=== PATIENT | female | born 1985 | race American Indian/Alaskan Native ===

== ENCOUNTER 2017-01-05 11:29 | Emergency (ER) | payer SELFPAY ==
[2017-01-05] MEDS ORDERED: MOTRIN PO ONE (15:27)
--- NOTE | 2017-01-05 16:49 | Emergency Department Report ---
ED Back Pain/Injury HPI - General Chief Complaint: Back Pain/Injury Stated Complaint: BACK/NECK PAIN/POSS EXPOSURE TO MOLD Time Seen by Provider: 01/05/17 15:06 Source: patient Mode of arrival: Ambulatory Limitations: No Limitations - History of Present Illness Initial Comments: PT c/o back pain secondary to 4x2 wooden beam falling from her ceiling and striking her back last night. PT states she was at home and laying in bed when her ceiling fell in. PT states she called 911 and police came out. PT states she was told there was mold in the insulation. pt c/o neck and back pain. MD Complaint: back pain -: Sudden, days(s) Similar Symptoms Previously: No Place: home Severity: severe Severity scale (0 -10): 8 Quality: sharp, aching Consistency: constant Improves With: none Worsens With: movement, walking, other (palpation ) Associated Symptoms: denies: difficulty walking, difficulty urinating, fever/ chills, nausea/vomiting - Related Data Previous Rx's Medication Instructions Recorded Last Taken Type Acetaminophen/Codeine [Tylenol #3] 1 tab PO Q6H PRN #12 tab 01/05/17 Unknown Rx Ibuprofen [Motrin] 600 mg PO Q8H PRN #15 tablet 01/05/17 Unknown Rx methOCARBAMOL [Robaxin TAB] 500 mg PO Q6H PRN #15 tablet 01/05/17 Unknown Rx Allergies Allergy/AdvReac Type Severity Reaction Status Date / Time No Known Allergies Allergy Unverified 01/05/17 12:43 ED Review of Systems ROS: Stated complaint: BACK/NECK PAIN/POSS EXPOSURE TO MOLD Other details as noted in HPI Comment: All other systems reviewed and negative Constitutional: denies: chills, fever Gastrointestinal: denies: nausea, vomiting Genitourinary: denies: dysuria, abnormal menses Musculoskeletal: back pain ED Past Medical Hx - Past Medical History Previous Medical History?: No - Surgical History Past Surgical History?: No - Social History Smoking Status: Never Smoker - Medications Home Medications: Home Medications Medication Instructions Recorded Confirmed Last Taken Type Acetaminophen/Codeine [Tylenol #3] 1 tab PO Q6H PRN #12 tab 01/05/17 Unknown Rx Ibuprofen [Motrin] 600 mg PO Q8H PRN #15 tablet 01/05/17 Unknown Rx methOCARBAMOL [Robaxin TAB] 500 mg PO Q6H PRN #15 tablet 01/05/17 Unknown Rx ED Physical Exam - General Limitations: No Limitations General appearance: alert, in no apparent distress - Head Head exam: Present: atraumatic, normocephalic, normal inspection - Eye Eye exam: Present: normal appearance, PERRL, EOMI. Absent: conjunctival injection Pupils: Present: normal accommodation - ENT ENT exam: Present: normal exam, mucous membranes moist, normal external ear exam - Neck Neck exam: Present: normal inspection, tenderness, full ROM, other (+ post midline tenderness, + dickson paraspinal tenderness ) - Respiratory Respiratory exam: Present: normal lung sounds bilaterally. Absent: respiratory distress, wheezes, chest wall tenderness, accessory muscle use - Cardiovascular Cardiovascular Exam: Present: regular rate, normal rhythm, normal heart sounds - GI/Abdominal GI/Abdominal exam: Present: soft. Absent: tenderness - Extremities Exam Extremities exam: Present: normal inspection, full ROM, normal capillary refill - Back Exam Back exam: Present: normal inspection, full ROM, tenderness, muscle spasm, paraspinal tenderness, vertebral tenderness. Absent: CVA tenderness (R), CVA tenderness (L) - Neurological Exam Neurological exam: Present: alert, oriented X3, CN II-XII intact, normal gait - Psychiatric Psychiatric exam: Present: normal affect, normal mood - Skin Skin exam: Present: warm, dry, intact, normal color, other (with tattoos ) ED Course Vital Signs 01/05/17 01/05/17 01/05/17 12:43 16:00 17:00 Temperature 98.1 F Pulse Rate 80 Respiratory 16 16 16 Rate Blood Pressure 117/61 Blood Pressure [Right] O2 Sat by Pulse 100 Oximetry 01/05/17 17:35 Temperature Pulse Rate 82 Respiratory 16 Rate Blood Pressure Blood Pressure 117/69 [Right] O2 Sat by Pulse 98 Oximetry - Reevaluation(s) Reevaluation #1: 01/05/17 17:04 PT aware of XR results. PT has no questions at this time. - Pulse Oximetry Interpretation Digit-Finger Initial Pulse Oximetry Readin Actions Taken: none ED Medical Decision Making - Lab Data Lab Results 01/05/17 Range/Units 16:13 Urine Color Yellow (Yellow) Urine Turbidity Clear (Clear) Urine pH 6.0 (5.0-7.0) Ur Specific [place] 1.019 (1.003-1.030) Urine Protein <15 mg/dl (Negative) mg/dL Urine Glucose (UA) Neg (Negative) mg/dL Urine Ketones Neg (Negative) mg/dL Urine Blood Neg (Negative) Urine Nitrite Neg (Negative) Urine Bilirubin Neg (Negative) Urine Urobilinogen < 2.0 (<2.0) mg/dL Ur Leukocyte Esterase Neg (Negative) Urine WBC (Auto) < 1.0 (0.0-6.0) /HPF Urine RBC (Auto) 2.0 (0.0-6.0) /HPF U Epithel Cells (Auto) 2.0 (0-13.0) /HPF Urine Mucus Few /HPF Urine HCG, Qual Negative (Negative) - Radiology Data Radiology results: report reviewed XR C-spine- straightening or cervical lordosis - no fx XR T- spine - scoliosis, no fx XR L spine - no fx - Differential Diagnosis mold exposure, fx, uti, Critical Care Time: No Critical care attestation.: If time is entered above; I have spent that time in minutes in the direct care of this critically ill patient, excluding procedure time. ED Disposition Clinical Impression: Contact with or exposure to mold, Acute low back pain due to trauma Cervical muscle strain Qualifiers: Encounter type: initial encounter Qualified Code(s): S16.1XXA - Strain of muscle, fascia and tendon at neck level, initial encounter Thoracic back pain Qualifiers: Chronicity: acute Back pain laterality: midline Qualified Code(s): M54.6 - Pain in thoracic spine Disposition: DC-01 TO HOME OR SELFCARE Is pt being admited?: No Does the pt Need Aspirin: No Condition: Stable Instructions: Muscle Strain (ED), Allergic Rhinitis (ED), Acute Low Back Pain ( ED), Back Pain (ED) Additional Instructions: No driving or alcohol after taking Tylenol #3 or Robaxin Your pain should gradually decrease over the next few days Follow up with PCP in 3-5 days Follow up with your landlord for temporary housing while your apartment is being fixed - you will want to limit your mold exposure Prescriptions: Acetaminophen/Codeine [Tylenol #3] 1 tab PO Q6H PRN #12 tab PRN Reason: Pain , Severe (7-10) Ibuprofen [Motrin] 600 mg PO Q8H PRN #15 tablet PRN Reason: Pain methOCARBAMOL [Robaxin TAB] 500 mg PO Q6H PRN #15 tablet PRN Reason: Muscle Spasm Referrals: PRIMARY CARE, [Primary Care Provider] - 3-5 Days KRISTIE BURTON MD [Staff Physician] - 3-5 Days [facility] [Outside] - 3-5 Days Time of Disposition: 17:09
[2017-01-05 16:52] LABS: Bilirubin,Urine NEG (Negative); Blood,Urine NEG (Negative); Ketones,Urine NEG (Negative); Leukocyte Esterase,Urine NEG (Negative); Mucus,Urine FEW /HPF; Nitrite,Urine NEG (Negative); Protein,Urine <15 mg/dL mg/dL (Negative); Urobilinogen,Urine < 2.0 mg/dL (<2.0); WBC,Urine < 1.0 /HPF (0.0-6.0)
--- NOTE | 2017-01-05 16:55 | XRay Report ---
FINAL REPORT PROCEDURE: XR SPINE LUMBOSACRAL 2-3V TECHNIQUE: Three views of the lumbar spine are obtained HISTORY: Back pain injury COMPARISON: No prior studies are available for comparison. FINDINGS: There is moderate levoscoliosis centered at L4-5. No compression fracture or subluxation is seen. No disc space narrowing is seen. No arthritic changes are seen. IMPRESSION: Moderate levoscoliosis is seen at L4-5.
--- NOTE | 2017-01-05 16:56 | XRay Report ---
FINAL REPORT PROCEDURE: XR SPINE THORACIC 2V TECHNIQUE: Two views of the thoracic spine are obtained HISTORY: pain sp hit by 2 x 4 COMPARISON: No prior studies are available for comparison. FINDINGS: There is mild dextroscoliosis centered in the mid thoracic spine. Thoracolumbar scoliosis may be acute or chronic. No thoracic compression fracture or subluxation is seen. No disc space narrowing is seen. IMPRESSION: There is thoracolumbar scoliosis.
--- NOTE | 2017-01-05 16:57 | XRay Report ---
FINAL REPORT PROCEDURE: XR SPINE CERVICAL 2-3V TECHNIQUE: Three views of the cervical spine are obtained HISTORY: pain sp injury COMPARISON: No prior studies are available for comparison. FINDINGS: There is straightening of cervical lordosis which may be positional or due to muscular spasm. No arthritic changes are seen. No subluxation or prevertebral soft tissue swelling is seen. No fracture is seen. IMPRESSION: Straightening of cervical lordosis may be positional or due to muscular spasm.
[2017-01-05 17:36] VITALS: BP 117/69
== END 2017-01-05 17:37 | disposition home or self-care (01) ==
LOC: ED 11:29
DX: S16.1XXA Strain of muscle, fascia and tendon at neck level, initial encounter (principal); M54.6 Pain in thoracic spine; M54.5 Low back pain; Z77.120 Contact with and (suspected) exposure to mold (toxic); W17.89XA Other fall from one level to another, initial encounter; Y93.9 Activity, unspecified; Y92.9 Unspecified place or not applicable; Y99.9 Unspecified external cause status
CPT/HCPCS: 72040; 72070; 72100; 81001; 81025